=== PATIENT | male | born 1950 | race Caucasian/White ===

== ENCOUNTER → 2019-09-13 | Outpatient (CLI) | payer MEDICARE, BC ==
[~2019-09-13] MED LIST: CEFE1INJ2 IV; LIDOCAINE 1% MDV 20ML VIAL As Ordered ONE; OXYC1TAB23 PO; PANT40TA3 PO; VALS1TAB67 PO
[2019-09-13 15:42] VITALS: BP 155/89
--- NOTE | 2019-09-13 17:00 | REP ---
PICC line insertion under ultrasound guidance. The procedure was performed by VANESSA Castañeda, under the direct supervision of Dr. Anne. The risks and benefits of the procedure were explained to the patient and informed consent was obtained both verbally and written. Directly prior to the start of the procedure, a formal timeout was completed in the procedure room. The left basilic vein was localized using ultrasound guidance. The skin was prepped and draped in the sterile fashion. 2 ml 1% lidocaine 10 mg/ml was used as a local anesthetic. Using ultrasound guidance the left basilic vein was cannulated and a 0.018 guidewire was inserted and advanced to the SVC using fluoroscopic guidance. The needle was removed and a 4.5 Setswana dilator and peel-away sheath was inserted over the guidewire. A 4.5 Setswana single lumen catheter was cut to the length of 35 cm. The dilator was removed and the catheter was inserted over the guide wire with the tip in the SVC. The peel-away sheath was removed and the catheter was flushed with heparinized saline as per hospital protocol. The catheter was affixed to the skin and a sterile dressing was applied. The patient tolerated the procedure well and there were no immediate complications. 0.2 minutes of fluoroscopy time was utilized for this procedure. Some fluoroscopic images are performed with last image hold technology. These images require no additional radiation. Reviewed by VANESSA Mitchell 09/13/2019 04:41 P Electronically Signed by Nilson Anne MD 09/13/2019 04:51 P
== END ==
LOC: M IRPRO 12:04
PROVIDERS: ATTEND Nurse Practitioner Family
DX: T81.40XA Infection following a procedure, unspecified, initial encounter (principal)
CPT/HCPCS: 36573; C1751

== ENCOUNTER → 2019-11-01 | Outpatient (REF) | payer MEDICARE, BC ==
[~2019-11-01] MED LIST changes: -LIDOCAINE 1% MDV 20ML VIAL As Ordered ONE
[2019-11-01 11:37] LABS: BASO % 0.4 % (0.0-1.0); EOS # 0.1 10^3/uL (0.0-0.5); EOS % 0.8 % (0.0-3.0); HEMATOCRIT 47.9 % (42.0-52.0); HEMOGLOBIN 15.5 g/dl (13.5-17.5); LYMPH # 1.7 10^3/uL (1.5-5.0); LYMPH % 16.3 % (24.0-44.0); MEAN CORPUSCULAR HEMOGLOBIN 28.5 pg (27.0-33.0); MEAN CORPUSCULAR HGB CONC 32.4 g/dl (32.0-36.5); MEAN CORPUSCULAR VOLUME 88.1 fl (80.0-96.0); MONO # 0.8 10^3/uL (0.0-0.8); MONO % 8.1 % (0.0-5.0); NEUTROPHILS # 7.6 10^3/uL (1.5-8.5); NEUTROPHILS % 73.7 % (36.0-66.0); PLATELET COUNT, AUTOMATED 277 10^3/uL (150-450); RED BLOOD COUNT 5.44 10^6/uL (4.30-6.10); WHITE BLOOD COUNT 10.3 10^3/uL (4.0-10.0)
[2019-11-01 12:16] LABS: ERYTHROCYTE SEDIMENTATION RATE 39 mm/hr (0-20)
== END ==
LOC: M SFHCPLAZ 09:20
PROVIDERS: ATTEND Internal Medicine Infectious Disease
DX: T81.49XA Infection following a procedure, other surgical site, initial encounter (principal); A49.8 Other bacterial infections of unspecified site
CPT/HCPCS: 36415; 85025; 85652; 86140; G0463

== ENCOUNTER → 2019-11-01 | Outpatient (REF) | LOC: M LAB LCGH 11:17 | DX: M75.91 Shoulder lesion, unspecified, right shoulder (principal) ==

== ENCOUNTER → 2019-11-12 | Outpatient (CLI) | payer MEDICARE, BC ==
[~2019-11-12] MED LIST changes: +LIDOCAINE 1% MDV 20ML VIAL As Ordered ONE
[2019-11-12 17:22] VITALS: BP 121/69
--- NOTE | 2019-11-12 18:47 | REP ---
PICC line insertion under ultrasound guidance. The procedure was performed by VANESSA Castañeda, under the direct supervision of Dr. Farooq. The risks and benefits of the procedure were explained to the patient and informed consent was obtained both verbally and written. Directly prior to the start of the procedure, a formal timeout was completed in the procedure room. The left basilic vein was localized using ultrasound guidance. The skin was prepped and draped in the sterile fashion. 1 ml 1% lidocaine 10 mg/ml was used as a local anesthetic. Using ultrasound guidance the left basilic vein was cannulated and a 0.018 guidewire was inserted and advanced to the SVC using fluoroscopic guidance. The needle was removed and a 4.5 Mexican dilator and peel-away sheath was inserted over the guidewire. A 4.5 Mexican single lumen catheter was cut to the length of 40 cm. The dilator was removed and the catheter was inserted over the guide wire with the tip ending in the SVC. The peel-away sheath was removed and the catheter was flushed with heparinized saline as per hospital protocol. The catheter was affixed to the skin and a sterile dressing was applied. The patient tolerated the procedure well and there were no immediate complications. 0.3 minutes of fluoroscopy time was utilized for this procedure. Some fluoroscopic images are performed with last image hold technology. These images require no additional radiation. Reviewed by VANESSA Mitchell 11/12/2019 05:50 P Electronically Signed by Kristopher Farooq MD 11/12/2019 06:38 P
== END ==
LOC: M IRPRO 14:15
PROVIDERS: ATTEND Orthopaedic Surgery
DX: Z79.2 Long term (current) use of antibiotics (principal)
CPT/HCPCS: 36573; C1751; J1642; J1644

== ENCOUNTER → 2020-01-09 | Outpatient (CLI) | payer MEDICARE, BC ==
[~2020-01-09] MED LIST changes: -LIDOCAINE 1% MDV 20ML VIAL As Ordered ONE
[2020-01-09 16:11] LABS: ALBUMIN 3.9 GM/DL (3.2-5.2); ALT/SGPT 288 U/L (12-78); BILIRUBIN,DIRECT 2.7 MG/DL (0.0-0.2); BILIRUBIN,TOTAL 3.7 MG/DL (0.2-1.0); IRON (FE) 64 UG/DL (65-175); PERCENT SATURATION 14.6 % (19.7-50.0); TOTAL IRON BINDING CAPACITY 437 UG/DL (250-450); TOTAL PROTEIN 8.5 GM/DL (6.4-8.2)
[2020-01-09 16:26] LABS: HEPATITIS B SURFACE ANTIGEN NEGATIVE (NEGATIVE)
[2020-01-09 16:53] LABS: HEPATITIS B CORE ANTIBODY IGM NEGATIVE (NEGATIVE); HEPATITIS C VIRUS ABY INDEX 0.1 INDEX (<0.8)
[2020-01-09 16:56] LABS: HEPATITIS A ANTIBODY IGM NEGATIVE (NEGATIVE)
== END ==
LOC: M LAB 15:04
PROVIDERS: ATTEND Internal Medicine Gastroenterology
DX: R94.5 Abnormal results of liver function studies (principal); D50.9 Iron deficiency anemia, unspecified

== ENCOUNTER → 2020-01-16 | Outpatient (CLI) | payer MEDICARE, BC ==
[2020-01-16 17:15] LABS: INR 0.94; PROTHROMBIN TIME 12.3 SECONDS (11.8-14.0)
[2020-01-16 17:34] LABS: ALBUMIN 3.8 GM/DL (3.2-5.2); BILIRUBIN,DIRECT 1.5 MG/DL (0.0-0.2); BILIRUBIN,TOTAL 1.9 MG/DL (0.2-1.0); TOTAL PROTEIN 7.8 GM/DL (6.4-8.2)
== END ==
LOC: M LAB 16:09
PROVIDERS: ATTEND Internal Medicine Gastroenterology
DX: R94.5 Abnormal results of liver function studies (principal)

== ENCOUNTER → 2020-01-23 | Outpatient (CLI) | payer MEDICARE, BC ==
[~2020-01-23] MED LIST changes: +OMEP40CA97 PO; +ONDA-83 PO
[2020-01-23 12:05] LABS: BASO # 0.1 10^3/uL (0.0-0.2); BASO % 0.8 % (0.0-1.0); EOS # 0.3 10^3/uL (0.0-0.5); EOS % 4.4 % (0.0-3.0); HEMATOCRIT 44.9 % (42.0-52.0); HEMOGLOBIN 15.2 g/dl (13.5-17.5); LYMPH % 26.1 % (24.0-44.0); MEAN CORPUSCULAR HEMOGLOBIN 29.2 pg (27.0-33.0); MEAN CORPUSCULAR HGB CONC 33.9 g/dl (32.0-36.5); MEAN CORPUSCULAR VOLUME 86.3 fl (80.0-96.0); MONO # 0.6 10^3/uL (0.0-0.8); MONO % 8.1 % (0.0-5.0); NEUTROPHILS # 4.6 10^3/uL (1.5-8.5); NEUTROPHILS % 60.2 % (36.0-66.0); PLATELET COUNT, AUTOMATED 517 10^3/uL (150-450); WHITE BLOOD COUNT 7.7 10^3/uL (4.0-10.0)
[2020-01-23 12:15] LABS: INR 0.94; PROTHROMBIN TIME 12.3 SECONDS (11.8-14.0)
[2020-01-23 12:25] LABS: ALBUMIN 4.1 GM/DL (3.2-5.2); BILIRUBIN,DIRECT 1.1 MG/DL (0.0-0.2); BILIRUBIN,TOTAL 2.1 MG/DL (0.2-1.0); CALCIUM LEVEL 10.2 MG/DL (8.8-10.2); CREATININE FOR GFR 1.42 MG/DL (0.70-1.30); GLOMERULAR FILTRATION RATE 52.9 (>49); POTASSIUM SERUM 4.3 MEQ/L (3.5-5.1); TOTAL PROTEIN 8.3 GM/DL (6.4-8.2)
== END ==
LOC: M LAB 11:39
PROVIDERS: ATTEND Internal Medicine Gastroenterology
DX: R94.5 Abnormal results of liver function studies (principal)

== ENCOUNTER → 2020-01-24 | Outpatient (CLI) | payer MEDICARE, BC | LOC: M LABSMTC 12:28 | PROVIDERS: ATTEND Anesthesiology | DX: Z01.812 Encounter for preprocedural laboratory examination (principal); Z11.59 Encounter for screening for other viral diseases ==

== ENCOUNTER 2020-01-25 09:28 | Day surgery (SDC) | payer MEDICARE, BC ==
[~2020-01-25] VITALS: Ht 177.8 cm; Wt 78.0 kg
[~2020-01-25 09:28] MED LIST changes: +LIDOCAINE 2% 100MG/5ML SDV (FOR ANES.) As Ordered ONE; +NS 1,000 ML IV ONE; +fentaNYL 100 MCG/2 ML INJECTION (J3010) As Ordered ONE; +propofoL 200 MG/20 ML VIAL As Ordered ONE
--- NOTE | 2020-01-25 10:27 | ROOR ---
Patient Name: Wilton Hook Procedure Date: 01/25/2020 9:53 AM Date of : 1950 Age: 69 Room: [facility] Gender: Male Note Status: Finalized Procedure: Upper GI endoscopy Indications: Epigastric abdominal pain, Nausea Providers: Tony MIMS MD Referring MD: GOYO VANESSA MD Requesting Provider: Medicines: Monitored Anesthesia Care Complications: No immediate complications. Procedure: Pre-Anesthesia Assessment: - The heart rate, respiratory rate, oxygen saturations, blood pressure, adequacy of pulmonary ventilation, and response to care were monitored throughout the procedure. The Endoscope was introduced through the mouth, and advanced to the second part of duodenum. The upper GI endoscopy was accomplished without difficulty. The patient tolerated the procedure well. Findings: Diffuse salmon-colored mucosa was present from 38 to 39 cm. No other visible abnormalities were present. The maximum longitudinal extent of these esophageal mucosal changes was 1 cm in length. Biopsies were taken with a cold forceps for histology. Evidence of a fundoplication was found in the cardia. The wrap appeared intact. The entire examined stomach was normal. The examined duodenum was normal. Impression: - [place]-colored mucosa suspicious for short-segment Perez's esophagus. Biopsied. - A fundoplication was found. The wrap appears intact. - Normal stomach. - Normal examined duodenum. Recommendation: - Observe patient's clinical course. - Return to my office at appointment to be scheduled. - My office will call you to set up MRI and a 7-10 day office follow up appointment. - My office will mail you lab work to be done about 1-3 days before office visit. Tony Mims MD Tony MIMS MD 01/25/2020 10:27:18 AM Electronically signed by Tony MIMS MD Number of Addenda: 0 Note Initiated On: 01/25/2020 9:53 AM Estimated Blood Loss: Estimated blood loss: none.
[2020-01-25 10:40] VITALS: BP 111/71
== END 2020-01-25 11:10 | disposition home or self-care (01) ==
LOC: M OPP 09:28
PROVIDERS: ATTEND Internal Medicine Gastroenterology
DX: K22.8 Other specified diseases of esophagus (principal); Z98.890 Other specified postprocedural states; R10.13 Epigastric pain; R11.0 Nausea; K21.9 Gastro-esophageal reflux disease without esophagitis; I10 Essential (primary) hypertension; Z88.8 Allergy status to other drugs, medicaments and biological substances; Z87.891 Personal history of nicotine dependence
CPT/HCPCS: 43239; 88305; J3010

== ENCOUNTER → 2020-02-01 | Outpatient (CLI) | payer MEDICARE, BC ==
[~2020-02-01] MED LIST changes: -LIDOCAINE 2% 100MG/5ML SDV (FOR ANES.) As Ordered ONE; -NS 1,000 ML IV ONE; -fentaNYL 100 MCG/2 ML INJECTION (J3010) As Ordered ONE; -propofoL 200 MG/20 ML VIAL As Ordered ONE
--- NOTE | 2020-02-01 13:10 | REP ---
MRI ABDOMEN WITHOUT CONTRAST: TECHNIQUE: Multiple sequences obtained in the axial and coronal planes. Imaging includes MRCP images with heavily T2-weighted scans and MIP reconstruction images. The liver is mildly enlarged with a length of approximately 18.6 cm. Spleen is mildly enlarged with a length of approximately 13.5 cm. Multiple subcentimeter hyperintensities are seen on T2-weighted images throughout the liver, most consistent with tiny cysts and/or hemangiomas. The largest measures 1.2 cm and appears to represent a septated cyst, in the lateral segment of the left lobe. There is no significant intrahepatic or extrahepatic biliary dilatation status post cholecystectomy. The maximum diameter of the common bile duct is 6 mm. No pancreatic duct dilatation is seen. No intrinsic splenic abnormality is seen. The adrenal glands are normal. No definite pancreatic mass is seen, although evaluation is limited without IV contrast. The kidneys demonstrate no definite nodule. There is no hydronephrosis. I see no evidence of lymphadenopathy or free fluid in the abdomen. IMPRESSION: Mild hepatosplenomegaly. There appear to be multiple subcentimeter cysts and/or hemangiomas throughout the liver. One T2-hyperintensity in the lateral segment of the left lobe appears to represent a cyst containing a septation with a maximum diameter of 1.2 cm. No biliary dilatation status post cholecystectomy. No evidence of fatty infiltration of the liver. Electronically Signed by Nilson Anne MD 02/01/2020 01:12 P
== END ==
LOC: M RAD 09:42
PROVIDERS: ATTEND Internal Medicine Gastroenterology
DX: R16.2 Hepatomegaly with splenomegaly, not elsewhere classified (principal); K76.9 Liver disease, unspecified; R94.5 Abnormal results of liver function studies

== ENCOUNTER → 2025-07-18 | Outpatient (REF) | payer MEDICARE ==
[~2025-07-18] MED LIST changes: +OMEP40CA4 PO; -OMEP40CA97 PO; +PANT40TA29 PO; -PANT40TA3 PO
[2025-07-18 15:49] LABS: BASO # 0.0 10^3/uL (0.0-0.2); BASO % 0.4 % (0.0-1.0); EOS # 0.1 10^3/uL (0.0-0.5); EOS % 1.1 % (0.0-3.0); LYMPH # 1.4 10^3/uL (1.5-5.0); LYMPH % 13.4 % (24.0-44.0); MONO # 0.7 10^3/uL (0.0-0.8); MONO % 6.4 % (2.0-8.0); NEUTROPHILS # 8.0 10^3/uL (1.5-8.5); NEUTROPHILS % 78.3 % (36.0-66.0); PLATELET COUNT, AUTOMATED 289 10^3/uL (150-450)
[2025-07-18 15:55] LABS: ALT/SGPT 23.0 U/L (7.0-40); AST/SGOT 24.0 U/L (<34); C REACTIVE PROTEIN QUANTITATIV 1.1 MG/DL (<1.0); CALCIUM LEVEL 9.9 MG/DL (8.3-10.6); CARBON DIOXIDE LEVEL 29.0 MMOL/L (20-31); CHLORIDE LEVEL 100.0 MMOL/L (98-107); COMPLEMENT C4 44.6 MG/DL (12-36); CREATININE FOR GFR 1.13 MG/DL (0.70-1.30); GLOMERULAR FILTRATION RATE 68.6 (>42); POTASSIUM SERUM 4.6 MMOL/L (3.5-5.1); SODIUM LEVEL 139.0 MMOL/L (136-145)
== END ==
LOC: M SFHCRHEU 12:58
PROVIDERS: ATTEND Internal Medicine Rheumatology
DX: M06.09 Rheumatoid arthritis without rheumatoid factor, multiple sites (principal); M10.9 Gout, unspecified; E55.9 Vitamin D deficiency, unspecified